=== PATIENT | male | born 1995 ===

== ENCOUNTER 2021-05-26 13:05 | Emergency (ER) | payer OTHER ==
[~2021-05-26] VITALS: Ht 160 cm; Wt 45.4 kg
[2021-05-26] MEDS ORDERED: ZITHROMAX500 MG PO (21:08)
== END 2021-05-26 21:33 ==
LOC: ER 13:05
DX: J06.9 Acute upper respiratory infection, unspecified (principal); A49.3 Mycoplasma infection, unspecified site; Z03.818 Encounter for observation for suspected exposure to other biological agents ruled out